=== PATIENT | female | born 1955 | race Caucasian/White ===

== ENCOUNTER → 2017-01-14 | Outpatient (CLI) | payer OTHER ==
[~2017-01-14] MED LIST: CALCIUM + VIT1 EACH; PROLIA60 MG/1 ML; VICODIN 5/500 T1 TAB PO
== END | disposition home or self-care (01) ==
LOC: CSSDAY 10:30
DX: M81.0 Age-related osteoporosis without current pathological fracture (principal)
CPT/HCPCS: 96372; J0897